=== PATIENT | female | born 1960 | race Caucasian/White ===

== ENCOUNTER → 2022-05-08 | Outpatient (CLI) | payer BC ==
--- NOTE | 2022-05-08 09:49 | US ---
EXAMINATION TYPE: US abdomen complete DATE OF EXAM: 05/08/2022 COMPARISON: NONE CLINICAL HISTORY: R14.0 ABDOMINAL DISTENSION (GASEOUS). TECHNIQUE: Multiple sonographic images of the abdomen are obtained. FINDINGS: EXAM MEASUREMENTS: Liver Length: 12.7 cm Gallbladder Wall: 3mm cm CBD: 0.2 cm Spleen: 10.4 cm Right Kidney: 10.6 x 4.4 x 4.5 cm Left Kidney: 10.5 x 4.5 x 4.7 cm [employer] NOTES: Pancreas: Obscured by bowel gas Liver: patient had cyst removed from liver surgically, limited visualization shows no obvious mass Gallbladder: possible small gallstone Evidence for sonographic Zarate's sign: no CBD: wnl Spleen: wnl Right Kidney: No hydronephrosis or masses seen, limited views Left Kidney: cyst measuring 4.0 x 3.4 x 3.3cm, very limited visualization Upper IVC: wnl Abd Aorta: Mostly obscured by overlying bowel gas, portions visualized wnl Patient of thick body habitus, extensive overlying bowel gas with multiple midline abdominal scars. T echnically difficult study. The liver is homogenous. The intrahepatic portion of the IVC and proximal abdominal aorta are within normal limits. Common bile duct is unremarkable. The visualized portions of the pancreas are homog enous. The spleen is unremarkable. Kidneys are symmetric and free of hydronephrosis. IMPRESSION: 1. Uncomplicated cholelithiasis.
== END | disposition home or self-care (01) ==
LOC: RADUSWWP 08:53
PROVIDERS: ATTEND Internal Medicine Gastroenterology
DX: K80.20 Calculus of gallbladder without cholecystitis without obstruction (principal)
CPT/HCPCS: 76700

== ENCOUNTER 2022-06-27 07:32 | Day surgery (SDC) | payer BC ==
[2022-06-26 09:53] VITALS: BMI 23.0
[~2022-06-27 07:32] MED LIST: LACTATED RINGERS 1,000 ML IV SCH; LIDOCAINE 1% (10MG/ML) FOR IV START INTRADERMA PRN
[2022-06-27 07:56] VITALS: TEMP 97.7
[2022-06-27] MEDS ORDERED: LIDOCAINE 2% INJ 20 MG/ML (2 ML VIAL) ONE (08:45)
[2022-06-27] MEDS ORDERED: PROPOFOL 10 MG/ML 20 ML VIAL IV ONE (08:45)
--- NOTE | 2022-06-27 08:55 | P.PCN ---
Date of Procedure: 06/27/22 Procedure(s) Performed: BRIEF HISTORY: Patient is a 62-year-old, pleasant, female scheduled for an upper endoscopy as a part of evaluation of abdominal discomfort abdominal bloating for the last. Her symptoms have been progressively getting worse for the last 1 year. She also complains of early satiety. She does have long-standing history of GERD and has been on pantoprazole 40 mg daily. PROCEDURE PERFORMED: Esophagogastroduodenoscopy with biopsy. PREOPERATIVE DIAGNOSIS: Long-standing history of GERD/abdominal bloating and early satiety. IV sedation per anesthesia. PROCEDURE: After informed consent was obtained, the patient was brought into the endoscopy unit. IV sedation was administered by Anesthesia under continuous monitoring. Initially the Olympus GIF-140 video endoscope was inserted into the mouth. Esophagus intubated without any difficulty. It was gradually advanced into the stomach and duodenum and carefully examined. The bulb and the second part of the duodenum appeared normal. Biopsies were done from the duodenum to rule out celiac disease. The scope at this time was withdrawn to the stomach, adequately insufflated with air, and upon careful examination, mucosa of the antrum revealed gastritis and biopsies were done from this area. The, body, cardia and the fundus appeared normal. The scope was then withdrawn into the esophagus. The GE junction was located at 39 cm from the incisors. Small sliding type hiatal hernia noted The esophagus appeared normal. There were no erosions or ulcerations seen, biopsies were done from the distal esophagus and the patient tolerated the procedure well. IMPRESSION: 1. Mild antral gastritis. 2. Small hiatal hernia but no evidence of esophagitis or peptic ulcer disease. RECOMMENDATIONS: The findings of this examination were discussed with the patient as well as a family. She was advised to follow up biopsy results. In the meantime she'll continue with Protonix 40 mg daily and follow antireflux measures..
[2022-06-27 08:58] VITALS: RESP 16
[2022-06-27 09:13] VITALS: BP 107/71; PULSE 65
== END 2022-06-27 09:30 | disposition home or self-care (01) ==
LOC: ORWHC2ENDO 07:32
PROVIDERS: ATTEND Internal Medicine Gastroenterology
DX: K29.50 Unspecified chronic gastritis without bleeding (principal); K21.00 Gastro-esophageal reflux disease with esophagitis, without bleeding; K44.9 Diaphragmatic hernia without obstruction or gangrene; R68.81 Early satiety; I10 Essential (primary) hypertension; E78.5 Hyperlipidemia, unspecified; E07.9 Disorder of thyroid, unspecified; F41.9 Anxiety disorder, unspecified; I71.9 Aortic aneurysm of unspecified site, without rupture; G35 Multiple sclerosis; Z88.2 Allergy status to sulfonamides; Z88.1 Allergy status to other antibiotic agents; Z88.6 Allergy status to analgesic agent; Z79.899 Other long term (current) drug therapy; Z79.51 Long term (current) use of inhaled steroids; Z79.890 Hormone replacement therapy
CPT/HCPCS: 88305; 43239; J2704; J2001

== ENCOUNTER → 2023-11-05 | Outpatient (CLI) | payer BC ==
--- NOTE | 2023-11-05 12:24 | BD ---
EXAMINATION TYPE: Axial Bone Density DATE OF EXAM: 11/05/2023 CLINICAL HISTORY: 63 years old Female. ICD-10 CODE: Z13.820 SCR FOR OSTEOPOROSIS Height: 5 ft 2 in Weight: 143 FRAX RISK QUESTIONS: Alcohol (3 or more units per day): no Family History (Parent hip fracture): no Glucocorticoids (More than 3mos): no (Ex: prednisone, prednisolone, methylprednisolone, dexamethasone, and hydrocortisone). History of Fracture in Adulthood: yes Secondary Osteoporosis: 1. Type 1 Diabetes: no 2. Hyperthyroidism: no 3. Menopause before 45: yes 4. Malnutrition: no 5. Chronic liver disease: no Rheumatoid Arthritis: no Current Tobacco Use: no RISK FACTORS HISTORY OF: Surgery to Spine/Hip(right/left)/Wrist (right/left): left wrist When: 3 years ago MEDICATIONS: Thyroid Medications: none currently Osteoporosis Medications: none EXAM MEASUREMENTS: Bone mineral densitometry was performed using the [employer]. Bone mineral density as measured about the Lumbar spine is: ----- L1-L4(G/cm2): 0.926 T Score Values are as follows: ----- L1: -1.6 ----- L2: -2.8 ----- L3: -2.1 ----- L4: -2.1 ----- L1-L4: -2.1 Z Score Values are as follows: ----- L1: 0.0 ----- L2: -1.2 ----- L3: -0.6 ----- L4: -0.6 ----- L1-L4: -0.6 Bone mineral density has: decreased -15.4 % since study of: 2005 Bone mineral density about the R hip (g/cm2): 0.763 Bone mineral density about the L hip (g/cm2): 0.820 T Score values are as follows: -----R Neck: -2.0 -----L Neck: -1.6 -----R Total: -2.1 -----L Total: -1.9 Z Score values are as follows: -----R Neck: -0.5 -----L Neck: -0.1 -----R Total: -1.0 -----L Total: -0.7 Bone mineral density has: decreased -20.3 % since study of: 2005 FRAX%s: The graph provided illustrates a 17.5 % chance for a major osteoporotic fx and a 2.6 % chance for the hips probability for fx in 10 years time. IMPRESSION: Osteoporosis (T Score less than -2.5). There is increased fracture risk and therapy is usually indicated based on age. Re-Screen 1-2 years. NOTE: T-SCORE=SD OF THE YOUNG ADULT MEAN.
== END | disposition home or self-care (01) ==
LOC: RADBDWWP 07:34
PROVIDERS: ATTEND Internal Medicine
DX: Z13.820 Encounter for screening for osteoporosis (principal); Z78.0 Asymptomatic menopausal state; M81.0 Age-related osteoporosis without current pathological fracture; M85.89 Other specified disorders of bone density and structure, multiple sites
CPT/HCPCS: 77080

== ENCOUNTER → 2023-11-20 | Outpatient (CLI) | payer BC ==
[2023-11-20] MEDS: ZOLEDRONIC ACID 5 MG in SODIUM CHLORIDE 0.9% 100 ML IV NR (09:07)
[2023-11-20] MEDS: SODIUM CHLORIDE 0.9% 500 ML 500 ML in EMPTY BAG 1 BAG IV PRN (09:07)
[2023-11-20 09:30] VITALS: BP 147/82; PULSE 75; RESP 16; TEMP 97.8
== END ==
LOC: PROCWHC3 08:47
PROVIDERS: ATTEND Internal Medicine
DX: M81.0 Age-related osteoporosis without current pathological fracture (principal)
CPT/HCPCS: 96365; J3489